=== PATIENT | male | born 1935 | race Caucasian/White ===

== ENCOUNTER 2017-09-17 20:01 | Emergency (ER) | payer MEDICARE ==
[2017-09-17] MEDS ORDERED: ASPIRIN 81 MG CHEWABLE TABLET PO ONE (20:11)
[2017-09-17] MEDS ORDERED: FUROSEMIDE IV 40MG/4ML VIAL IVP ONE (20:19)
--- NOTE | 2017-09-17 20:21 | Emergency Department Record ---
History of Present Illness - General Chief Complaint: Chest Pain Stated Complaint: CHEST PAIN Time Seen by Provider: 09/17/17 20:10 Source: Patient, Family Mode of Arrival: Ambulatory Limitations: No limitations - History of Present Illness Initial Comments: pt started having cp 1 hr [employer] along with diaphoresis, nausea and sob. he has never had anything like this before. MD Complaint: Chest pain Onset/Timin -: Hour(s) Onset: After eating Pain Location: Substernal Severity: Moderate Severity scale (1-10): 8 Quality: Heaviness Consistency: Constant Improves With: Nothing Worsens With: Nothing Anginal Symptoms: Diaphoresis Other Symptoms: Leg swelling - Related Data Home Medications Medication Instructions Recorded Confirmed Last Taken Albuterol Sulfate [Ventolin Hfa] 09/17/17 Unknown Clopidogrel Bisulfate [Clopidogrel] 09/17/17 Unknown Furosemide [Lasix] 09/17/17 09/17/17 Unknown Spironolactone [Spironolactone] 09/17/17 Unknown Tamsulosin HCl [Flomax] 09/17/17 Unknown Allergies Allergy/AdvReac Type Severity Reaction Status Date / Time No Known Drug Allergies Allergy Verified 09/17/17 20:16 Review of Systems Reviewed: No additional complaints except as noted below Constitutional: Reports: As per HPI. Denies: Chills, Fever, Malaise, Night sweats, Weakness, Weight change Eyes: Reports: As per HPI. Denies: Eye discharge, Eye pain, Photophobia, Vision change ENT: Reports: As per HPI. Denies: Congestion, Dental pain, Ear pain, Epistaxis , Hearing loss, Throat pain Respiratory: Reports: As per HPI. Denies: Cough, Dyspnea, Hemoptysis, Stridor, Wheezes Cardiovascular: Reports: As per HPI. Denies: Arrhythmia, Chest pain, Dyspnea on exertion, Edema, Murmurs, Orthopnea, Palpitations, Paroxysmal nocturnal dyspnea, Rheumatic Fever, Syncope Endocrine: Reports: As per HPI. Denies: Fatigue, Heat or cold intolerance, Polydipsia, Polyuria Gastrointestinal: Reports: As per HPI. Denies: Abdominal pain, Constipation, Diarrhea, Hematemesis, Hematochezia, Melena, Nausea, Vomiting Genitourinary: Reports: As per HPI. Denies: Dysuria, Frequency, Hematuria, Incontinence, Retention, Testicular pain, Testicular mass, Urgency Musculoskeletal: Reports: As per HPI. Denies: Arthralgia, Back pain, Gout, Joint swelling, Myalgia, Neck pain Skin: Reports: As per HPI. Denies: Bruising, Change in color, Change in hair/ nails, Lesions, Pruritus, Rash Neurological: Reports: As per HPI. Denies: Abnormal gait, Confusion, Headache, Numbness, Paresthesias, Seizure, Tingling, Tremors, Vertigo, Weakness Psychiatric: Reports: As per HPI. Denies: Anxiety, Auditory hallucinations, Depression, Homicidal thoughts, Suicidal thoughts, Visual hallucinations Hematological/Lymphatic: Reports: As per HPI. Denies: Anemia, Blood Clots, Easy bleeding, Easy bruising, Swollen glands Physical Exam - General General Appearance: Alert, Oriented x3, Cooperative, Mild distress - Head Head exam: Normal inspection - Eye Eye exam: Normal appearance, PERRL, EOMI Pupils: Normal accommodation - ENT ENT exam: Normal exam, Mucous membranes moist, Normal external ear exam, Normal orophraynx Ear exam: Normal external inspection. negative: External canal tenderness Nasal Exam: Normal inspection. negative: Discharge, Sinus tenderness Mouth exam: Normal external inspection, Tongue normal Teeth exam: Normal inspection. negative: Dental caries Throat exam: Normal inspection. negative: Tonsillar erythema, Tonsillar exudate - Neck Neck exam: Normal inspection, Full ROM. negative: Tenderness - Respiratory Respiratory exam: Rales, Respiratory distress - Cardiovascular Cardiovascular Exam: Regular rate, Normal rhythm, Normal heart sounds - GI/Abdominal GI/Abdominal exam: Soft, Normal bowel sounds. negative: Tenderness - Rectal Rectal exam: Deferred - exam: Deferred - Extremities Extremities exam: Normal inspection, Full ROM, Normal capillary refill. negative: Tenderness - Back Back exam: Reports: Normal inspection, Full ROM. Denies: Muscle spasm, Rash noted, Tenderness - Neurological Neurological exam: Alert, CN II-XII intact, Normal gait, Oriented X3 - Psychiatric Psychiatric exam: Normal affect, Normal mood - Skin Skin exam: Dry, Intact, Normal color, Warm Medical Decision Making - Lab Data Result diagrams: 09/17/17 20:15 09/17/17 20:15 Disposition Disposition: Transfer Clinical Impression: Chest pain Qualifiers: Chest pain type: chest pain due to myocardial ischemia Ischemic chest pain type : unstable angina pectoris Qualified Code(s): I20.0 - Unstable angina [facility]: needs agate setter Accepting Physician: zakiya Time Discussed w/Accepting Physician: 20:35 Forms: Patient Portal Access Quality - Quality Measures Quality Measures: N/A - Blood Pressure Screening Does Patient Have Any of the Following: Active Dx of HTN Blood Pressure Classification: Hypertensive Reading Systolic Measurement: 150 Diastolic Measurement: 96 Screening for High Blood Pressure: Patient Exclusion, Hx of HTN [[id number]]
[2017-09-17 20:25] LABS: BASO % 0.1 % (0-6); EOS % 1.7 % (0-6); GRAN % 68.3 % (47-80); HEMATOCRIT 40.7 % (42.0-52.0); HEMOGLOBIN 13.1 gm/dl (14.0-18.0); LYMPH % 20.9 % (16-45); MEAN CELL VOLUME 98.3 fl (81-97); MEAN CORPUSCULAR HEMOGLOBIN 31.6 pg (27-33); MEAN CORPUSCULAR HGB CONC 32.2 g/dl (32-36); MEAN PLATELET VOLUME 9.7 fl (7.4-10.4); PLATELET COUNT 289 K/uL (130-400); RED BLOOD COUNT 4.14 M/uL (4.40-5.70); RED CELL DISTRIBUTION WIDTH 15.1 % (11.5-14.5)
[2017-09-17] MEDS: NITROGLYCERIN 0.4MG SL TABLET #25 BTL SL PRN ×3 (20:25→20:35)
[2017-09-17] MEDS ORDERED: HEPARIN SODIUM 1000 UNIT/1 ML 10ML VIAL IVP ONE (20:31)
[2017-09-17 20:34] LABS: BLOOD UREA NITROGEN 21 mg/dL (8-23); CREATININE 1.4 mg/dL (0.7-1.2); EST GLOMERULAR FILTRATION RATE 52 mL/min
[2017-09-17 20:37] LABS: GLUCOSE,RANDOM 200 mg/dL (74-109)
[2017-09-17 20:40] LABS: CREATINE PHOSPHOKINASE 77 U/L (39-308)
[2017-09-17 20:42] LABS: CKMB 4.2 ng/mL (<6.73)
[2017-09-17] MEDS ORDERED: HEPARIN SODIUM/D5W 25,000 UNITS/500 ML BAG IV SCH (20:45)
--- NOTE | 2017-09-19 19:00 | RADIOLOGY REPORT ---
EXAM: CHEST AP or PA ONLY HISTORY: DIFFICULTY BREATHING. TECHNIQUE: A single AP portable view of the chest was provided along with a comparison study dated 01/24/16. FINDINGS: Cardiomegaly is noted. Tortuosity of the thoracic aorta is noted. Post sternotomy changes are identified. Alta appear unremarkable. Diffuse interstitial infiltrates are identified bilaterally. These findings suggest pulmonary edema vs. interstitial pneumonia. No pneumothorax is noted. IMPRESSION: BILATERAL INTERSTITIAL INFILTRATES ARE IDENTIFIED DISCUSSED ABOVE. FOLLOW-UP PA AND LATERAL VIEW OF THE CHEST CAN BE OBTAINED UNTIL RESOLUTION OF FINDINGS. JOB NUMBER: [id number] [facility]
== END 2017-09-17 21:15 | disposition short-term general hospital (02) ==
LOC: ER 20:01
DX: I20.0 Unstable angina (principal); R06.02 Shortness of breath; R61 Generalized hyperhidrosis; R11.0 Nausea; F17.210 Nicotine dependence, cigarettes, uncomplicated
CPT/HCPCS: 71010; 80048; 82550; 82553; 83880; 84484; 85025; 85379; 93005; 93010; 96374; 96375; 99285; J1940